=== PATIENT | female | born 1990 | race Caucasian/White ===

== ENCOUNTER 2021-07-28 21:01 | Inpatient (IN) | payer OTHER, SELFPAY ==
[2021-07-29] VITALS (233 sets, daily range): BP systolic 62–132; BP diastolic 39–93; PULSE 54–159; RESP 16–20; TEMP 36.4–37.7; O2SAT 95–100; BMI 27.3
[2021-07-29] MEDS: LACTATED RINGERS 1,000 ML 125 ML IV CONT ×4 (00:03→09:45)
[2021-07-29 00:04] LABS: Basophils Percent Auto 0.3 % (0.2-1.2); Eosinophils Percent Auto 0.4 % (0-4.4); Hematocrit 37.6 % (37.0-47.0); Hemoglobin 12.7 g/dL (12.0-15.0); Immature Granulocyte Absolute 0.12 K/mm3 (0.00-0.031); Immature Granulocyte Percent A 1.2 % (0-0.5); Lymphocytes Absolute Auto 2.35 K/mm3 (0.9-3.2); Lymphocytes Percent Auto 24.4 % (18.3-44.2); Mean Corpuscular HGB Conc 33.8 g/dl (32-36); Mean Corpuscular Hemoglobin 31.1 pg (26-34); Mean Corpuscular Volume 92.2 fl (80-100); Mean Platelet Volume 8.8 fl (7.4-10.4); Monocytes Absolute Auto 0.6 K/mm3 (0.1-0.6); Monocytes Percent Auto 6.6 % (2.6-8.5); Neutrophils Absolute Auto 6.5 K/mm3 (1.3-6.7); Neutrophils Percent Auto 67.1 % (45.5-73.1); Platelet Count Result 166 k/mm3 (150-375); Red Blood Count 4.08 M/mm3 (4.2-5.4); Red Cell Distribution Width 13.9 % (11.5-14.5); White Blood Count 9.6 K/mm3 (4.5-10.0)
--- NOTE | 2021-07-29 00:10 | LDADM ---
This patient, Jessica Penn, was admitted to Labor/Delivery/Recovery 107 on 07/28/21 at 21:01. Plans for labor, pain management and were discussed with patient. Patient/family oriented to hospital policies and general routines including ID bracelet, bed and alarms, visiting hours, pain management, procedures, bathroom and other care routines, personal items, smoking policy, room service/diet and guest tray routines, security routines, and visiting hours. Patient/Family are encouraged to report perceived risks to care and to ask questions if they do not understand what they are told or what they should do. See OBIX for further documentation.
--- NOTE | 2021-07-29 00:49 | WPDANESEPP ---
Anes - Eval Pre Procedure Procedure: labor epidural Date/Time: 07/29/21 00:49 Surgeon: guru Preop Diagnosis: pain during labor Pre Op Diagnosis: Contractions Patient Data Age: 31 Gender: F Height: 1.52 m Weight: 63.6 kg Last Vital Signs Pulse 73 07/29/21 00:31 BP 103/59 L 07/29/21 00:31 Pulse Ox 99 07/29/21 00:48 Allergies Allergy/AdvReac Type Severity Reaction Status Date / Time azithromycin Allergy Unknown HIVES Verified 07/24/21 15:38 cefaclor Allergy Unknown HIVES Verified 07/24/21 15:38 Home Medications Medication Instructions Recorded Confirmed Type prenat.vits,wilbert,ujo-xtmf-husns 1 tablet PO HS 07/24/21 07/29/21 History [ #2] sertraline [Zoloft] 50 mg PO DAILY 07/24/21 07/29/21 History Laboratory Tests 07/28/21 07/28/21 23:58 23:58 WBC 9.6 K/mm3 K/mm3 (4.5-10.0) RBC 4.08 M/mm3 L M/mm3 (4.2-5.4) Hgb 12.7 g/dL g/dL (12.0-15.0) Hct 37.6 % % (37.0-47.0) MCV 92.2 fl fl (80-100) MCH 31.1 pg pg (26-34) MCHC 33.8 g/dl g/dl (32-36) RDW 13.9 % % (11.5-14.5) Plt Count 166 k/mm3 k/mm3 (150-375) MPV 8.8 fl fl (7.4-10.4) Immature Gran % (Auto) 1.2 % H % (0-0.5) Neut % (Auto) 67.1 % % (45.5-73.1) Lymph % (Auto) 24.4 % % (18.3-44.2) [place] % (Auto) 6.6 % % (2.6-8.5) Eos % (Auto) 0.4 % % (0-4.4) Baso % (Auto) 0.3 % % (0.2-1.2) Lymph # (Auto) 2.35 K/mm3 K/mm3 (0.9-3.2) [place] # (Auto) 0.6 K/mm3 K/mm3 (0.1-0.6) Eos # (Auto) 0.0 K/mm3 K/mm3 (0-0.3) Baso # (Auto) 0.0 K/mm3 K/mm3 (0.0-0.1) Abs Immat Gran (auto) 0.12 K/mm3 H K/mm3 (0.00-0.031) Absolute Neuts (auto) 6.5 K/mm3 K/mm3 (1.3-6.7) Absolute Nucleated RBC 0.0 K/mm3 K/mm3 (0.0-0.012) Nucleated RBC % 0.0 % % (0.0-0.2) RPR Pending Patient hx anesthesia problems: none Family hx anesthesia problems: none [facility] Family History Family History (Updated 07/24/21 @ 15:39 by Miller Jones RN) Grandparent Diabetes mellitus Social History Social History Smoking status: Never smoker Substance use: never Spiritual care concerns: No Exam Day of Procedure 07/29/21 00:49
--- NOTE | 2021-07-29 01:35 | WPDHPUPDATE1 ---
History and Physical Update Update Date/Time: 07/29/21 01:35 31 yo at 38w6d who presents in labor. Pt reported contractions starting at 0200 the day of admission. She endorses good movement. Pt had SROM while being observed in L&D. She denies any vaginal bleeding. Pt is complicated by prior x1 for breech. also complicated by anxiety on zoloft. History and Physical has been reviewed, including an updated exam of the patient. There are NO changes in the patient's condition. Risks, benefits, and alternatives have been discussed and questions answered. Patient agrees to proceed with procedure. A/P: 31 yo at 38w6d in labor admit to L&D routine admission orders SROM in L&D Rh+ GBS neg cvx 1cm on admission FHT cat 1 regular contractions on admission continous EFM
--- NOTE | 2021-07-29 01:39 | PM.OBPNLAB ---
Pain Control Date/time seen: 07/29/21 01:39 Pain control: epidural Comments: Pt comfortable after epidural. Pelvic Exam Dilation (cm): 5 Effacement (%): 90 station: -1 Amniotic membrane status: Ruptured Comments: Forebag noted, AROM of forebag with copious amount of clear fluid Contractions Monitor mode: External Contraction frequency: 5 Contraction pattern: Regular Status status: Category ll Assessment and Plan Assessment: active labor Plan: continuous present management Comments: forebag AROM for clear fluid. FSE placed. cvx progressed to 5cm. Will augment with pitocin if no change in cervix.
[2021-07-29] MEDS: OXYTOCIN 30 UNITS/NS 500 ML 30 UNITS/500 ML BAG IV CONT (03:34)
[2021-07-29] MEDS: ONDANSETRON INJ 4 MG/2 ML VIAL IV PUSH ×2 (03:40→09:45)
[2021-07-29] MEDS: SODIUM CHLORIDE 0.9% IV 300 ML I-UTERINE (04:18)
[2021-07-29] MEDS: diphenhydrAMINE HCl INJ 50 MG/ML VIAL IV PUSH (09:59)
[2021-07-29] MEDS: OXYTOCIN 30 UNITS/NS 500 ML 30 UNITS/500 ML BAG 125 UNITS IV CONT (14:14)
--- NOTE | 2021-07-29 14:18 | PM.OBPRVD ---
OB - Delivery Note Procedure Procedure: Patient pushed for a spontaneous vaginal delivery. A nuchal cord x1 was noted. The fetus was delivered through and it was reduced on the perineum. The fetus was delivered atraumatically and placed on the maternal abdomen. The cord was clamped and cut after 1 minute of life. The cord was double clamped and cut and a segment of cord was collected for cord gases. Cord blood was collected for blood type and Coomb's testing. The placenta delivered spontaneously and was noted to be intact. The perineum was inspected and there was a 2nd degree perineal laceration. The laceration was repaired with 2-0 vicryl in the usual fashion. The uterus was firm and good hemostasis was noted. The patient and fetus were stable in the delivery room. Intrapartal events: None Induction method: none Delivery augmentation: pitocin Delivery monitor: external FHT, internal FHT and internal uterine Route of delivery: Episiotomy description: None Laceration Description: Perineal - 2nd Degree and Vaginal - 2nd Degree Delivery repair: vicryl Specimen: No Quantitative Blood Loss (ml): 250 Anesthesia type: Epidural Disposition: floor () Complications: No immediate complications Baby Date of : 07/29/21 Time of : 13:46 Weeks of gestation at delivery: 38 gender: Male Weight (pounds): 6 Weight (ounces): 12 presentation: vertex position: Right Occiput Anterior Placenta delivery description: Spontaneous cord vessel description: Nuchal Cord score one minute: 6 score five minutes: 8
[2021-07-29] MEDS: IBUPROFEN 600 MG TABLET PO ×2 (15:24→21:02)
[2021-07-29] MEDS: WITCH HAZEL 40 PADS 1 PAD TOPICAL (15:54)
[2021-07-29] MEDS: BENZOCAINE 20% AER SPR (*SP) 56 GM CAN 1 SPRAY TOPICAL (15:54)
[2021-07-29] MEDS: ACETAMINOPHEN 325 MG TABLET 650 MG PO (20:42)
[2021-07-29] MEDS: HYDROcodone/acetaminophen (*CRX) 5-325 MG TABLET 1 TAB PO (22:35)
[2021-07-30 05:34] LABS: Hematocrit 27.7 % (37.0-47.0); Hemoglobin 9.2 g/dL (12.0-15.0)
[2021-07-30 05:40] VITALS: BP 89/54; PULSE 70; RESP 16; TEMP 37.2; O2SAT 98
[2021-07-30] MEDS: IBUPROFEN 600 MG TABLET PO ×2 (05:44→12:45)
[2021-07-30] MEDS: HYDROcodone/acetaminophen (*CRX) 5-325 MG TABLET 1 TAB PO (05:45)
[2021-07-30 08:10] VITALS: BP 96/59; PULSE 80; RESP 16; TEMP 37.1; O2SAT 99
--- NOTE | 2021-07-30 08:25 | PM.OBDSVD ---
DS: Admitting Diagnosis Admitting Diagnosis intrauterine at term prior x1 labor OB - DS: Summary OB Procedures : None OB Procedures Intrapartum: Spontaneous Vag Delivery OB Procedures: : None Peripartum Data Delivery Method: Natural Vaginal Laceration Description: Perineal - 2nd Degree and Vaginal - 2nd Degree complications: none Status at Discharge Functional status at discharge: independent ambulation Overall status at discharge: patient is back to baseline Time Spent with Patient Time attestation: Total time spent providing and/or coordinating discharge services: Time spent: Less than 30 minutes Exam Const: General: comfortable and no acute distress Resp: Effort & Inspection: normal respiratory effort Auscultation: clear to auscultation bilaterally Cardio: Rate: regular rate GI: GI Palp: Yes Soft to palpation Auscultation: normal bowel sounds Other: Fundus firm below umbilicus Psych: Appearance: grossly normal Mental Status: mental status grossly normal Affect: normal affect DS: Data Data Completed and Pending Labs on day of discharge: Labs from last 24 hours 07/30/21 05:09 Hgb 9.2 L D Hct 27.7 L Discharge Plan Discharge Discharging Clinician: Ovi Martin Patient Disposition: Home, Self-Care Activity: as tolerated and pelvic rest Diet: regular Patient Instructions: Antibiotic Form, Vaginal Delivery (DC) Stand Alone Forms: General Discharge Information Follow-up/Referrals: Ovi Martin MD [Physician] - 4 Weeks Discharge Medications: New hydrocodone-acetaminophen 5-325 mg tablet 1 tablet PO Q6H PRN (Reason: pain) Qty: 28 RF: 0 polysaccharide iron complex 150 mg iron Capsule 150 mg PO BIDWM Qty: 60 RF: 0 acetaminophen [Mapap (acetaminophen)] 325 mg Tablet 650 mg PO Q6H PRN (Reason: Mild Pain (1-3) Or Headache) Qty: 30 RF: 0 ibuprofen 600 mg Tablet 600 mg PO Q6H PRN (Reason: Cramping) Qty: 30 RF: 0 Continued sertraline [Zoloft] 50 mg Tablet 50 mg PO DAILY RF: 0 #2 Tablet 1 tablet PO HS RF: 0 Date of admission: 07/28/21 21:01 Primary Care Provider: DeborahEdilma Admitting Provider: Ovi Martin Attending physician on admission: Ovi Martin Condition: Stable
[2021-07-30] MEDS: DOCUSATE SODIUM 100 MG CAPSULE PO (09:25)
[2021-07-30] MEDS: MULTIVIT/MIN/PREN/FOL AC/IRON TABLET 1 TAB PO (09:25)
[2021-07-30] MEDS: POLYSACCHARIDE IRON COMPLEX 150 MG CAPSULE PO (09:33)
[2021-07-30 11:57] VITALS: BP 97/60; PULSE 82; RESP 16; TEMP 36.9; O2SAT 98
--- NOTE | 2021-07-30 12:05 | PC.NURSE ---
Mother called out for assist with feeding. Mother independently p ut to breast, previous feeding primary RN assisted with deeper latch and resolved discomfort while feeding. Reviewed infant feeding cues, frequencies, duration of feedings, feeding elimination flow sheet, and signs of adequate intake. Demonstrated stimulation techniques to wake infant for feeding. Assisted with to breast. Reviewed positioning/alignment in cross cradle, holding breast in ?U? hold and guided asymmetrical latch on. Discussed rational for each. Infant was latched correctly. Reviewed signs of a correct latch, effective nursing and suck swallow ratio. Infant nursed eagerly, with steady draws and frequent swallowing noted. Reviewed the difference of effective vs ineffective nursing. Suggested mother stimulate while feeding to increase stimulation, increase intake and to assist with maintaining deep latch. Infant was able to maintain latch without discomfort to mother. Demonstrated how to adjust latch more deeply while feeding if needed. Nipple care reviewed of lanolin after feedings, warm compresses as needed. Mother plans on discharge at 24 hours. Mother is feeding as required and waking infant to feed if needed. Infant is feeding as required and currently meeting outcomes for weight, output, jaundice and feeding frequencies. Mother states she feels confident to continue effective at home. Reviewed transition to breast milk, signs of adequate intake, and engorgement/relief. Instructed to call ICP if intake/output less than required. Reviewed regular medications mother is taking. Information provided per Radha. Reviewed community resources on the [facility] website and in the Mom/Baby guide. Information on outpatient services provided. Mother has no further questions at this time.
--- NOTE | 2021-07-30 18:54 | PC.NURSE ---
1725 Discharge papers reviewed with pt and FOB; they voiced understanding, and mother signed discharge papers.
--- NOTE | 2021-07-30 19:06 | PC.NURSE ---
[id number] Toro instruction that if baby does not void at home this evening, to call the exchange. Nurse confirmed with parents that they do have formula bottles from hospital to give infant if necessary later this evening, if baby has not voided. Parents encouraged to call Dr. Hardin's office tomorrow if they have any concerns about . They agreed. F/U visit will be 08-01-21.
[2021-07-31 10:30] LABS: Rapid Plasma Reagin Non-Reactive (NonReactive)
[2021-08-01 08:52] VITALS: BP 110/59; PULSE 88; RESP 16; TEMP 37.3; O2SAT 98
== END 2021-07-30 17:32 | disposition home or self-care (01) | DRG 807 ==
LOC: ANHLDR 23:57 → ANHOB2 07-29 17:44
PROVIDERS: Admitting Provider Student in an Organized Health Care Education/Training Program; PCP Nurse Practitioner Adult Health; Visit Provider Student in an Organized Health Care Education/Training Program
DX: O34.211 Maternal care for low transverse scar from previous cesarean delivery (principal); Z37.0 Single live birth; O99.344 Other mental disorders complicating childbirth; O69.81X0 Labor and delivery complicated by cord around neck, without compression, not applicable or unspecified; O70.1 Second degree perineal laceration during delivery; O76 Abnormality in fetal heart rate and rhythm complicating labor and delivery; Z3A.38 38 weeks gestation of pregnancy; F41.9 Anxiety disorder, unspecified
CPT/HCPCS: 36415; 85014; 85018; 85025; 86592; 86850; 86900; 86901; A9270; J1200; J2405; J2590; J2795; J7030; J7120

== ENCOUNTER 2023-08-20 16:06 | Inpatient (IN) | payer BC, SELFPAY ==
[2023-08-20] VITALS (112 sets, daily range): BP systolic 65–132; BP diastolic 51–107; PULSE 56–148; TEMP 36.2–36.8; O2SAT 91–100; BMI 28.0
[2023-08-20 17:04] LABS: Basophils Percent Auto 0.4 % (0.2-1.2); Eosinophils Percent Auto 0.3 % (0-4.4); Hematocrit 34.6 % (37.0-47.0); Hemoglobin 11.5 g/dL (12.0-15.0); Immature Granulocyte Absolute 0.04 K/mm3 (0.00-0.031); Immature Granulocyte Percent A 0.5 % (0-0.5); Lymphocytes Absolute Auto 1.49 K/mm3 (0.9-3.2); Lymphocytes Percent Auto 19.5 % (18.3-44.2); Mean Corpuscular HGB Conc 33.2 g/dl (32-36); Mean Corpuscular Hemoglobin 29.6 pg (26-34); Mean Corpuscular Volume 88.9 fl (80-100); Mean Platelet Volume 8.8 fl (7.4-10.4); Monocytes Absolute Auto 0.5 K/mm3 (0.1-0.6); Monocytes Percent Auto 6.4 % (2.6-8.5); Neutrophils Absolute Auto 5.6 K/mm3 (1.3-6.7); Neutrophils Percent Auto 72.9 % (45.5-73.1); Platelet Count Result 189 k/mm3 (150-375); Red Blood Count 3.89 M/mm3 (4.2-5.4); Red Cell Distribution Width 13.7 % (11.5-14.5); White Blood Count 7.7 K/mm3 (4.5-10.0)
[2023-08-20] MEDS: LACTATED RINGERS 1,000 ML 125 ML IV CONT ×3 (17:07→19:55)
[2023-08-20] MEDS: CLINDAMYCIN 900 MG/D5W 50 ML 900 MG/50 ML PIGGYBACK 50 MG IVPB (17:08)
--- NOTE | 2023-08-20 17:31 | LDADM ---
This patient, Jessica Penn, was admitted to Labor/Delivery/Recovery 105 on 08/20/23 at 16:06. Plans for labor, pain management and were discussed with patient. Patient/family oriented to hospital policies and general routines including ID bracelet, bed and alarms, visiting hours, pain management, procedures, bathroom and other care routines, personal items, smoking policy, room service/diet and guest tray routines, security routines, and visiting hours. Patient/Family are encouraged to report perceived risks to care and to ask questions if they do not understand what they are told or what they should do. See OBIX for further documentation.
--- NOTE | 2023-08-20 17:42 | PM.IMHP ---
H&P: HPI History of Present Illness Date/Time: 08/20/23 17:42 Chief Complaint: Labor at term Narrative: this is a 33-year-old 4 para 2012 last menstrual period was [id number], EDC is 08/16/2023, presents at 40 portion of the gestation spontaneous rupture membranes prior to admission reviewed she had initial for breech and then had a successful . She and Dr. Bustamante have discussed risks and benefits we reviewed those again today. has been relatively uncomplicated she is positive for group B strep allergic to Ceclor and azithromycin. She is unsure of the allergy so she will see clindamycin. She also has a history of depression been on Zoloft 75. She is positive for rupture of membranes. The cervix is 4-5 cm [facility] Family History Family History Grandparent Diabetes mellitus Pancreatic cancer Grandparent No problems noted. Social History Social History Smoking status: Never smoker Substance use: never Spiritual care concerns: No Meds Home Medications and Allergies Home Medications Medication Instructions Recorded Confirmed Type prenat.vits,wilbert,moo-ttbb-uoqju 1 tablet PO HS 07/24/21 08/05/23 History sertraline 50 mg tablet (Zoloft) 75 mg PO DAILY 07/24/21 08/05/23 History Allergies Allergy/AdvReac Type Severity Reaction Status Date / Time azithromycin Allergy Unknown HIVES Verified 08/05/23 13:54 cefaclor Allergy Unknown HIVES Verified 08/05/23 13:54 Vital Signs Vital Signs - 24 hr 08/20/23 16:37 08/20/23 16:46 08/20/23 17:01 Pulse Rate 80 91 92 Blood Pressure 112/68 114/69 109/67 08/20/23 17:16 08/20/23 17:31 Pulse Rate 78 85 Blood Pressure 112/67 111/70 Exam Const: General: cooperative, healthy appearing and comfortable Nutritional Appearance: average body habitus Orientation/consciousness: oriented to person, oriented to place and oriented to time HENMT: Head: normal to inspection Resp: Effort & Inspection: normal respiratory effort Cardio: Rate: regular rate Rhythm: regular rhythm Heart sounds: S1 normal heart sound present and S2 normal heart sound present GI: Inspection: normal to inspection ( gravid soft uterus) : External Female Exam: normal external appearance Speculum Exam - Vagina: normal appearance of the vagina Speculum Exam - Cervix: normal appearance of the cervix ( cervix 4-5/90/-2. Abundant fluid is present with possible meconium specks) Bimanual exam- vagina & uterus: other ( heart tones reassuring) H&P: Results Labs Labs: Short CBC 08/20/23 Range/Units 16:57 WBC 7.7 (4.5-10.0) K/mm3 Hgb 11.5 L (12.0-15.0) g/dL Hct 34.6 L (37.0-47.0) % Plt Count 189 (150-375) k/mm3 Assessment and Plan Assessment and plan (1) Term : Code(s): Z34.90 - Encounter for supervision of normal , unspecified, unspecified trimester Status: Acute (2) Previous section: Code(s): Z98.891 - History of uterine scar from previous surgery Status: Acute (3) Group beta Strep positive: Code(s): B95.1 - Streptococcus, group B, as the cause of diseases classified elsewhere Status: Acute Plan was discussed in great detail. Group B strep prophylaxis with clindamycin. She is an epidural candidate
--- NOTE | 2023-08-20 18:19 | WPDANESEPP ---
Anes - Eval Pre Procedure Procedure: labor epidural Date/Time: 08/20/23 18:19 Pre Op Diagnosis: labor Patient Data Age: 33 Gender: F Height: 1.52 m Weight: 65 kg Last Vital Signs Pulse 76 08/20/23 18:16 BP 111/65 08/20/23 18:16 O2 Del Method Room Air 08/20/23 17:30 Allergies Allergy/AdvReac Type Severity Reaction Status Date / Time azithromycin Allergy Unknown HIVES Verified 08/05/23 13:54 cefaclor Allergy Unknown HIVES Verified 08/05/23 13:54 Home Medications Medication Instructions Recorded Confirmed Type prenat.vits,wilbert,flb-gozp-tdnld 1 tablet PO HS 07/24/21 08/05/23 History sertraline 50 mg tablet (Zoloft) 75 mg PO DAILY 07/24/21 08/05/23 History Laboratory Tests 08/20/23 16:57 WBC 7.7 K/mm3 (4.5-10.0) RBC 3.89 L M/mm3 (4.2-5.4) Hgb 11.5 L g/dL (12.0-15.0) Hct 34.6 L % (37.0-47.0) MCV 88.9 fl (80-100) MCH 29.6 pg (26-34) MCHC 33.2 g/dl (32-36) RDW 13.7 % (11.5-14.5) Plt Count 189 k/mm3 (150-375) MPV 8.8 fl (7.4-10.4) Immature Gran % (Auto) 0.5 % (0-0.5) Neut % (Auto) 72.9 % (45.5-73.1) Lymph % (Auto) 19.5 % (18.3-44.2) [place] % (Auto) 6.4 % (2.6-8.5) Eos % (Auto) 0.3 % (0-4.4) Baso % (Auto) 0.4 % (0.2-1.2) Lymph # (Auto) 1.49 K/mm3 (0.9-3.2) [place] # (Auto) 0.5 K/mm3 (0.1-0.6) Eos # (Auto) 0.0 K/mm3 (0-0.3) Baso # (Auto) 0.0 K/mm3 (0.0-0.1) Abs Immat Gran (auto) 0.04 H K/mm3 (0.00-0.031) Absolute Neuts (auto) 5.6 K/mm3 (1.3-6.7) Absolute Nucleated RBC 0.0 K/mm3 (0.0-0.012) Nucleated RBC % 0.0 % (0.0-0.2) RPR Pending Blood Type O Positive Antibody Screen Negative Patient hx anesthesia problems: none Family hx anesthesia problems: none Results Review: All pre-operative results and documents have been reviewed as part of the pre-operative evaluation. [facility] Past Medical History Medical History (Updated 08/20/23 @ 18:20 by Annie Corona CRNA) Anxiety and depression Family History Family History Grandparent Diabetes mellitus Pancreatic cancer Grandparent No problems noted. Social History Social History Smoking status: Never smoker Substance use: never Lack of Transportation: No Lack of Food: Never True Current Housing: I Have Housing Concerned About Future Housing: No Difficulty Paying Gas/Electric Bills: No Difficulty Paying for Meds: No Currently Unemployed: No Education: Don't Know Difficulty w/ Childcare or Family Care: No Spiritual care concerns: No Exam Day of Procedure 08/20/23 18:19 Patient weight: overweight Heart: regular rate and rhythm Lungs: normal air movement Airway: Mallampati scale Neurological: alert and oriented
[2023-08-20 19:28] LABS: Hepatitis B Surface Antigen Negative (Negative); Rubella IgG Antibody 34.6 IU/ML
[2023-08-20] MEDS: OXYTOCIN 30 UNITS/NS 500 ML 30 UNITS/500 ML BAG IV CONT (20:22)
[2023-08-20] MEDS: SODIUM CHLORIDE 0.9% IV 300 ML 600 ML I-UTERINE (21:14)
--- NOTE | 2023-08-20 23:26 | PM.OBPRVD ---
OB - Delivery Note Procedure Delivery date: 08/20/23 Procedure: Events: Positive Group B Strep (GBS) Induction method: None Delivery augmentation: Pitocin Delivery monitor: External FHT and Internal Uterine Route of delivery: Episiotomy description: None Laceration Description: Perineal - 1st Degree Delivery repair: vicryl Specimen: No Quantitative Blood Loss (ml): 60 Anesthesia type: Epidural Disposition: Floor Narrative: clindamicin x 1 for gbs Baby Date of : 08/20/23 Time of : 23:14 Weeks of gestation at delivery: 40 gender: Male presentation: vertex position: Right Occiput Anterior Placenta delivery description: Spontaneous Cord Vessel Description: 3 Vessels, Nuchal Cord, Loose (x2) and Clamped/Cut score one minute: 8 score five minutes: 9
[2023-08-20] MEDS: OXYTOCIN 30 UNITS/NS 500 ML 30 UNITS/500 ML BAG 125 UNITS IV CONT (23:54)
[2023-08-21] VITALS (31 sets, daily range): BP systolic 95–154; BP diastolic 42–134; PULSE 36–287; RESP 16–18; TEMP 36.4–37.2; O2SAT 81–100
[2023-08-21] MEDS: BENZOCAINE 20% AER SPR (*SP) 56 GM CAN 1 SPRAY TOPICAL (01:45)
[2023-08-21] MEDS: WITCH HAZEL 40 PADS 1 PAD TOPICAL (01:45)
[2023-08-21 05:50] LABS: Hematocrit 31.8 % (37.0-47.0); Hemoglobin 10.5 g/dL (12.0-15.0)
--- NOTE | 2023-08-21 09:00 | PM.OBPNVD ---
OB - PN: Subj Subjective Date/time seen: 08/21/23 09:00 Narrative: Pain OK. Would like circumcision for son. OB - PN: Obj Data Labs 08/21/23 05:44 Labs: Laboratory Results - last 24 hr 08/20/23 08/21/23 16:57 05:44 WBC 7.7 RBC 3.89 L Hgb 11.5 L 10.5 L Hct 34.6 L 31.8 L MCV 88.9 MCH 29.6 MCHC 33.2 RDW 13.7 Plt Count 189 MPV 8.8 Immature Gran % (Auto) 0.5 Neut % (Auto) 72.9 Lymph % (Auto) 19.5 [facility] % (Auto) 6.4 Eos % (Auto) 0.3 Baso % (Auto) 0.4 Lymph # (Auto) 1.49 [facility] # (Auto) 0.5 Eos # (Auto) 0.0 Baso # (Auto) 0.0 Abs Immat Gran (auto) 0.04 H Absolute Neuts (auto) 5.6 Absolute Nucleated RBC 0.0 Nucleated RBC % 0.0 Hep Bs Antigen Negative Rubella IgG Antibody 34.6 Blood Type O Positive Antibody Screen Negative OB - PN A/P Plan Comments: A: PPD#1, doing well. P: Routine care. Reviewed circ. Exam Psych: Other: AVSS ABD soft, nontender, fundus firm EXT nontender
--- NOTE | 2023-08-21 10:00 | WPDANLDPN2 ---
Anes-Prog Note L&D Date/Time: 08/21/23 10:00 Comfortable throughout: labor and delivery Neuraxial method: epidural Epidural/Spinal procedure site: tender Neuro status: Neuro function grossly intact. Cardiovascular status: normal Respiratory status: normal Airway patency: baseline Mental status: baseline Post-Op hydration status: normal Vital Signs: Last Vital Signs Temp 37.1 C 08/21/23 08:25 Pulse 63 08/21/23 08:25 Resp 18 08/21/23 08:25 BP 95/57 L 08/21/23 08:25 Pulse Ox 100 08/21/23 08:25 O2 Del Method Room Air 08/20/23 17:30 Pain score (VAS): 3/10 I/O: Intake & Output 08/20/23 08/21/23 08/21/23 23:59 07:59 15:59 Intake Total 3550 Output Total 860 113 Balance 2690 -113 Post-procedural complaints: none Patient feedback: Patient satisfied with anesthetic care.
[2023-08-21] MEDS: IBUPROFEN 600 MG TABLET PO (12:04)
[2023-08-21] MEDS: DOCUSATE SODIUM 100 MG CAPSULE PO (12:04)
[2023-08-21] MEDS: MULTIVIT/MIN/PREN/FOL AC/IRON TABLET 1 TAB PO (12:04)
[2023-08-21] MEDS: SERTRALINE HCL 25 MG TABLET 75 MG PO (12:37)
--- NOTE | 2023-08-21 15:47 | PC.NURSE ---
[id number] Introductions were made, then consulted with patient to assess needs related to . Mother led the conversation with her?plans to feed?her infant, the?experience so far and her history. Since it has been over 3 hours to breastfeed, RN encouraged waking , placing infant S2S upright to encourage . Mother request a latch assessment since it has been a while since she breastfed her last for 14 months. Mother latches to the left breast with dangling belly to the ceiling. RN recommended a position that could possible help latch deeper with more swallows at the breast and mother was very receptive to learning. We adjusted infants body closer to mothers in a cross cradle position and latched optimally and effectively breastfed with mother visualizing deep lowering of the jaw for swallowing. Mother denies pain and gently massages and compresses breast to encourage milk flow, active for great feedings. Resources provided for inpatient and outpatient services with the mom/baby guide and name written on the white board. Mother voiced understanding of information and will call if there is a request for assistance. Reported to the primary RN.
--- NOTE | 2023-08-22 08:45 | PM.OBPNVD ---
OB - PN: Subj Subjective Date/time seen: 08/22/23 08:45 Narrative: Pain OK. Would like to go home. OB - PN: Obj Data Labs 08/21/23 05:44 OB - PN A/P Plan Comments: A: PPD#2, doing well. P: Home to f/u 6 weeks. Exam Psych: Other: AVSS ABD soft, nontender, fundus firm EXT nontender
--- NOTE | 2023-08-22 08:47 | PM.OBDSVD ---
DS: Admitting Diagnosis Discharge Date 08/22/23 Admitting Diagnosis IUP at term Labor DS: Discharge Diagnosis Discharge Diagnosis (1) , delivered: Code(s): O34.219 - Maternal care for unspecified type scar from previous delivery Status: Acute OB - DS: Summary OB Procedures : None OB Procedures Intrapartum: OB Procedures: : None Time Spent with Patient Time attestation: Total time spent providing and/or coordinating discharge services: Discharge Plan Discharge Attending physician on discharge: Kashif Garcia Discharging Clinician: Kashif Garcia Patient Disposition: Home, Self-Care Activity: pelvic rest Diet: regular Discharge Instructions: Call or return if temperature above 100.4? F, increased abdominal pain, increased vaginal bleeding or any new problems. Stand Alone Forms: General Discharge Information Follow-up/Referrals: Kashif Garcia MD [Physician] - 6 Weeks Discharge Medications: New ibuprofen 600 mg tablet 600 mg PO Q6H PRN (Reason: cramps) Qty: 30 0RF Continued sertraline [Zoloft] 50 mg Tablet 75 mg PO DAILY prenat.vits,wilbert,lpr-eqnd-nkwgm Tablet 1 tablet PO HS Date of admission: 08/20/23 16:06 Primary Care Provider: Edilma Lewsi Admitting Provider: Kashif Garcia Attending physician on admission: Kashif Garcia Condition: Stable
[2023-08-22 08:55] VITALS: BP 123/75; PULSE 76; RESP 16; TEMP 36.7; O2SAT 99
[2023-08-22] MEDS: SERTRALINE HCL 25 MG TABLET 75 MG PO (09:05)
[2023-08-22] MEDS: MULTIVIT/MIN/PREN/FOL AC/IRON TABLET 1 TAB PO (09:05)
--- NOTE | 2023-08-22 13:26 | PC.NURSE ---
[id number] Mother verbalizes she is able to independently latch with appropriate positioning/alignment. She denies any nipple discomfort and is responsively . is currently meeting outcomes for weight, output, jaundice and feeding frequencies of 8-12 times in 24 hours. Mother declines any additional assistance/education at this time. is in the nursery for blood sugar testing, gel and supplementation. Mother is encouraged to call for assistance if her infant doesn?t latch or there is discomfort with latching. Mother voiced understanding of information shared and the mom reminded of the mom/baby guide for an additional resource.
[2023-08-22 14:04] LABS: Rapid Plasma Reagin Non-Reactive (NonReactive)
[2023-08-23 11:18] VITALS: BP 104/56; PULSE 68; RESP 18; TEMP 36.7; O2SAT 98
== END 2023-08-22 19:20 | disposition home or self-care (01) | DRG 807 ==
LOC: ANHLDR 16:36 → ANHOB2 08-21 02:03
PROVIDERS: Obstetrics & Gynecology; Admitting Provider Obstetrics & Gynecology; PCP Nurse Practitioner Adult Health; Visit Provider Obstetrics & Gynecology
DX: O34.219 Maternal care for unspecified type scar from previous cesarean delivery (principal); Z37.0 Single live birth; O99.824 Streptococcus B carrier state complicating childbirth; O99.344 Other mental disorders complicating childbirth; F32.A Depression, unspecified; O70.0 First degree perineal laceration during delivery; O69.81X0 Labor and delivery complicated by cord around neck, without compression, not applicable or unspecified; O77.0 Labor and delivery complicated by meconium in amniotic fluid; Z3A.40 40 weeks gestation of pregnancy; Z23 Encounter for immunization
CPT/HCPCS: 36415; 59025; 76815; 85014; 85018; 85025; 86592; 86762; 86850; 86900; 86901; 87340; 90471; 90686; A9270; G0008; J2590; J2795; J7030; J7120